=== PATIENT | male | born 1950 | race Caucasian/White ===

== ENCOUNTER → 2018-10-22 | Outpatient (CLI) | payer MEDICARE ==
--- NOTE | 2018-10-22 08:50 | US ---
EXAMINATION TYPE: US duplex aorta DATE OF EXAM: 10/22/2018 COMPARISON: NONE CLINICAL HISTORY: Z13.6 Encounter for screening for cardiovascular d; AAA screening, no HTN EXAM MEASUREMENTS: Abdominal Aorta: Proximal: 3.2cm Transverse by 2.7 cm AP Mid: 2.2cm Transverse by 1.9 cm AP Distal: 2.0cm Transverse by 1.9 cm AP Bifurcation: 1.3cm Right ALBERTINA Transverse by 1.2 cm AP; 1.3cm Left ALBERTINA Transverse by 1.3 cm AP Color flow patency noted distal aorta with PSV of 77.6cm/sec. Aorta wall size is abnormal in Transver se measure. Intimal segmental wall calcification is noted throughout. IMPRESSION: 1. No abdominal aortic aneurysm.
== END | disposition home or self-care (01) ==
LOC: RADUSWWP 07:51
PROVIDERS: ATTEND Family Medicine
DX: Z13.6 Encounter for screening for cardiovascular disorders (principal)
CPT/HCPCS: 93979

== ENCOUNTER → 2021-03-08 | Outpatient (CLI) | payer MEDICARE ==
--- NOTE | 2021-03-08 18:19 | ECHOF ---
Referral Reason:R06.02 SOB, R07.89 Chest Pain MEASUREMENTS -------- HEIGHT: 185.4 cm WEIGHT: 79.4 kg BP: 124/61 RVIDd: 3.3 cm (< 3.3) IVSd: 1.2 cm (0.6 - 1.1) LVIDd: 4.1 cm (3.9 - 5.3) LVPWd: 1.2 cm (0.6 - 1.1) IVSs: 1.9 cm LVIDs: 2.2 cm LVPWs: 1.4 cm LA Diam: 3.8 cm (2.7 - 3.8) LAESV Index (A-L): 22.31 ml/m Ao Diam: 4.0 cm (2.0 - 3.7) AV Cusp: 2.2 cm (1.5 - 2.6) MV EXCURSION: 15.119 mm (> 18.000) MV EF SLOPE: 17 mm/s (70 - 150) EPSS: 0.6 cm MV E Khai: 0.83 m/s MV DecT: 335 ms MV A Khai: 0.87 m/s MV E/A Ratio: 0.96 RAP: 5.00 mmHg RVSP: 21.00 mmHg FINDINGS -------- Sinus rhythm. This was a technically adequate study. The left ventricular size is normal. There is borderline concentric left ventricular hypertrophy. Overall left ventricular systolic function is normal with, an EF between 60 - 65 %. The right ventricle is mildly enlarged. Normal LA size by volume 22+/-6 ml/m2. The right atrium is normal in size. Interatrial and interventricular septum intact. The aortic valve is trileaflet and appears structurally normal. Trace to mild aortic regurgitation. The mitral valve leaflets are mildly thickened. Mild mitral annular calcification present. Mild tricuspid regurgitation present. Right ventricular systolic pressure is normal at < 35 mmHg. Trace/mild (physiologic) pulmonic regurgitation. The aortic root is dilated measuring 4.0cm. Normal inferior vena cava with normal inspiratory collapse consistent with estimated right atrial pre ssure of 5 mmHg. There is no pericardial effusion. CONCLUSIONS -------- 1. The left ventricular size is normal. 2. There is borderline concentric left ventricular hypertrophy. 3. Overall left ventricular systolic function is normal with, an EF between 60 - 65 %. 4. The right ventricle is mildly enlarged. 5. Normal LA size by volume 22+/-6 ml/m2. 6. The aortic valve is trileaflet and appears structurally normal. 7. Trace to mild aortic regurgitation. 8. The mitral valve leaflets are mildly thickened. 9. Mild mitral annular calcification present. 10. Mild tricuspid regurgitation present. 11. Trace/mild (physiologic) pulmonic regurgitation. 12. The aortic root is dilated measuring 4.0cm. 13. There is no pericardial effusion. BIOASSAYIST: Ellen Davis RDCS
== END | disposition home or self-care (01) ==
LOC: RADECHMAIN 12:11
PROVIDERS: ATTEND Family Medicine
DX: I08.1 Rheumatic disorders of both mitral and tricuspid valves (principal); I37.1 Nonrheumatic pulmonary valve insufficiency
CPT/HCPCS: 93306

== ENCOUNTER → 2021-03-29 | Outpatient (CLI) | payer BC, MEDICARE ==
[~2021-03-29] MED LIST: REGADENOSON 0.4 MG/5 ML SYRINGE IV PRN
--- NOTE | 2021-03-29 11:19 | EST ---
EXERCISE STRESS AGE: 70 SEX: Male HT: 73" WT: 175 pounds PROTOCOL: Lexiscan Cardiolite STAGE: DURATION OF EXERCISE: HEART RATE REST: 55 BLOOD PRESSURE REST: 120/70 MAXIMUM HEART RATE ACHIEVED: 80 MAXIMUM BLOOD PRESSURE: 126/70 85% MPHR: 129 100% MPHR: 152 METS: INDICATIONS: Chest pain. CLINICAL INFORMATION: Baseline rhythm is a sinus mechanism, rate of 55, normal axis and intervals. Normal electrocardiogram. Baseline blood pressure 120/70 mmHg. Patient received injection of Lexiscan. Electrocardiograph monitoring revealed no evidence of diagnostic ischemic ST deviation. Cardiolite was injected per protocol. CONCLUSION: 1. Nondiagnostic electrocardiograph stress testing. 2. Nuclear images will be reported separately. MMODL / IJN: [id number] /
--- NOTE | 2021-03-29 11:39 | NM ---
EXAMINATION TYPE: NM stress lexiscan cardiolite DATE OF EXAM: 03/29/2021 COMPARISON: NONE HISTORY: Chest pain TECHNIQUE: After the intravenous administration of 9.8 mCi Tc 99m Sestamibi - Cardiolite resting SPE CT images acquired 45 minutes post injection. The patient received 0.4mg Lexiscan, 25.0 mCi Tc 99m Sestamibi - Stress images obtained [address] injection FINDINGS: Review of stress and rest SPECT images demonstrates fixed defect involving the apex as well as a area of reversibility involving the apical inferior myocardium.. Gated analysis shows normal wall motion with an estimated left ventricular ejection fraction of 69 %. Report called to referring clinician 1 1:36 AM 03/29/2021. IMPRESSION: 1. Findings suspicious for stress-induced reversible ischemia involving the apical inferior myocardiu m. Correlate clinically. 2. Ejection fraction 69%.
== END | disposition home or self-care (01) ==
LOC: RADNMMAIN 08:20
PROVIDERS: ATTEND Family Medicine
DX: R07.9 Chest pain, unspecified (principal)
CPT/HCPCS: 93017; 78452; A9500; J2785

== ENCOUNTER → 2021-04-05 | Outpatient (CLI) | payer MEDICARE ==
[2021-04-05 16:06] LABS: HGB 9.2 gm/dL (13.0-17.5); MCH 39.1 pg (25.0-35.0); MCHC 31.6 g/dL (31.0-37.0); MCV 123.4 fL (80.0-100.0); Macrocytosis Marked; Mean Platelet Volume 8.4; Platelet Count 158 k/uL (150-450); RBC 2.35 m/uL (4.30-5.90); RDW 15.3 % (11.5-15.5); WBC 3.1 k/uL (3.8-10.6)
[2021-04-05 16:14] LABS: Potassium 4.6 mmol/L (3.5-5.1)
== END | disposition home or self-care (01) ==
LOC: LABPAT 15:28
PROVIDERS: ATTEND Internal Medicine Cardiovascular Disease
DX: Z01.812 Encounter for preprocedural laboratory examination (principal); R07.2 Precordial pain
CPT/HCPCS: 36415; 80051; 82565; 84520; 85027

== ENCOUNTER 2021-04-19 07:38 | Day surgery (SDC) | payer MEDICARE ==
[2021-04-16 13:01] VITALS: BMI 23.1
[~2021-04-19 07:38] MED LIST changes: +ALPRAZolam 0.25 MG TAB PO PRN; +ALPRAZolam 0.5 MG TAB PO PRN; +ASPIRIN 325 MG TAB PO STA; +ATORVASTATIN 80 MG TAB PO STA; +NITROGLYCERIN SL TABS 0.4 MG TAB SUBLINGUAL PRN; -REGADENOSON 0.4 MG/5 ML SYRINGE IV PRN; +SODIUM CHLORIDE 0.9% 1,000 ML in EMPTY BAG 1 BAG IV ONE
[2021-04-19] MEDS ORDERED: SODIUM CHLORIDE 0.9% 1,000 ML IV ONE (08:03)
[2021-04-19 08:22] VITALS: RESP 16; TEMP 97.7
[2021-04-19 08:35] LABS: Basophils % (A) 1 %; Eosinophils # (A) 0.2 k/uL (0-0.7); Eosinophils % (A) 5 %; HGB 9.5 gm/dL (13.0-17.5); Lymphocytes # (A) 1.8 k/uL (1.0-4.8); Lymphocytes % (A) 56 %; MCH 40.8 pg (25.0-35.0); MCHC 33.7 g/dL (31.0-37.0); MCV 120.9 fL (80.0-100.0); Macrocytosis Marked; Mean Platelet Volume 9.3; Monocytes # (A) 0.1 k/uL (0-1.0); Monocytes % (A) 4 %; Neutrophils # (A) 1.1 k/uL (1.3-7.7); Neutrophils % (A) 33 %; Platelet Count 141 k/uL (150-450); RBC 2.32 m/uL (4.30-5.90); RDW 14.5 % (11.5-15.5); WBC 3.2 k/uL (3.8-10.6)
[2021-04-19] MEDS ORDERED: LIDOCAINE 1% INJ 10MG/ML (20 ML MDV) ONE (09:10)
[2021-04-19] MEDS ORDERED: fentaNYL (PF) 50 MCG/ML 2 ML AMP ONE (09:29)
[2021-04-19] MEDS ORDERED: MIDAZOLAM 2 MG/2 ML VIAL IV ONE (09:32)
[2021-04-19] MEDS ORDERED: fentaNYL (PF) 50 MCG/ML 2 ML AMP IV ONE (09:32)
[2021-04-19] MEDS ORDERED: LIDOCAINE 1% INJ 10MG/ML (20 ML MDV) SQ ONE (09:36)
[2021-04-19] MEDS ORDERED: IOPAMIDOL-370 125ML BTL INJ ONE (09:46)
[2021-04-19] MEDS ORDERED: RX INFO: IV CONTRAST WAS GIVEN 1 EACH MISC MISCELLANE PRN (11:15)
[2021-04-19] MEDS ORDERED: SODIUM CHLORIDE 0.9% 1,000 ML IV SCH (11:15)
--- NOTE | 2021-04-19 11:54 | LTR ---
April 19, 2021 Re: Tyrone Jim Dear Nadege: I have performed cardiac catheterization on Tyrone Jim. A detailed catheterization note is enclosed for your records. In brief, cardiac catheterization shows normal coronary arteries and normal left ventricular end-diastolic pressures. Patient's symptoms are noncardiac in origin and stress test is a false positive stress test. His symptomatology could be related to the anemia and the patient will follow up with you for the same. Thank you for giving me the privilege to participate in the care of this pleasant gentleman. Sincerely yours, MD MACK Romo / ABDULAZIZ: [id number] /
--- NOTE | 2021-04-19 11:54 | CC ---
CARDIAC CATHETERIZATION REPORT INDICATION: Chest pain with abnormal stress test showing reversible perfusion defect involving the inferoapical wall. PROCEDURE NOTE: After obtaining informed consent, left heart catheterization and coronary angiogram were performed via the right femoral artery using standard Deb catheters. Patient tolerated the procedure well without any obvious immediate complications. A femoral angiogram was performed and Angio-Seal was deployed for hemostasis. Patient received moderate conscious sedation. Total sedation time was 12 minutes. FINDINGS: 1. HEMODYNAMICS: Left ventricular end-diastolic pressure is 12 mm. There is no significant gradient across the aortic valve. 2. LEFT VENTRICULOGRAM: Left ventriculogram is not performed. 3. ANGIOGRAPHIC DATA: Left Main Coronary Artery: Left main coronary artery is a normal-sized vessel and is free of stenosis. Divides into left anterior descending coronary artery and circumflex coronary artery. LAD and its branches, circumflex coronary artery and its branches are free of significant stenosis. Right coronary artery is a large dominant vessel and is free of significant disease. CONCLUSIONS: 1. Normal coronary arteries. 2. Normal left ventricular end-diastolic pressure. PLAN: I reviewed angiographic data with the patient and told him that his stress test is a false positive stress test that he should stop the aspirin and the Imdur that he is currently on. He is anemic and I encouraged him to follow up with his primary care physician and have further evaluation done for the same if it has not already been done. MMODL / IJN: [id number] /
[2021-04-19 14:33] VITALS: BP 116/59; PULSE 58
== END 2021-04-19 14:55 | disposition home or self-care (01) ==
LOC: CATHCVL 07:38
PROVIDERS: ATTEND Internal Medicine Cardiovascular Disease
DX: R07.2 Precordial pain (principal); R94.39 Abnormal result of other cardiovascular function study; D64.9 Anemia, unspecified; E78.2 Mixed hyperlipidemia; Z20.822 Contact with and (suspected) exposure to COVID-19; Z82.49 Family history of ischemic heart disease and other diseases of the circulatory system; F17.200 Nicotine dependence, unspecified, uncomplicated; Z79.82 Long term (current) use of aspirin; Z79.899 Other long term (current) drug therapy
CPT/HCPCS: 93458; 85025; 87635; C1769 ×2; C1760; C1894; J2250; J2001; J3010; Q9967

== ENCOUNTER → 2022-02-06 | Outpatient (CLI) | payer MEDICARE ==
--- NOTE | 2022-02-06 14:31 | XR ---
EXAMINATION TYPE: XR bone survey complete DATE OF EXAM: 02/06/2022 COMPARISON: None available HISTORY: History of bone marrow cancer CHEST: Single AP view of the chest and ribs. Grossly unremarkable lungs. No pleural effusion or pneum othorax. No cardiomegaly. Aortic atherosclerotic calcification. Unremarkable bony thoracic cage. Bony calvarium : 2 views of the bony calvarium demonstrate. Tiny lucencies are seen in the superior aspects of the parietal bones measuring up to 5 mm, nonspecific. Subtle underlying osseous lesions ca nnot be excluded. Unremarkable calvarial bones otherwise. Spine: Two views of the cervical, thoracic and lumbar spines are submitted. Degenerative changes of the lower cervical spine with C5-6 and C6-7 facet osteoarthropathy more on the left side. Dextroscoli osis of the midthoracic spine. Exaggerated dorsal kyphosis. Degenerative changes of the mid to lower thoracic spine and lumbar spine. Degenerative changes of the lower lumbar spine. No gross lytic or sc lerotic lesion identified in the spine. PELVIS: Single view of the pelvis. No gross lytic or sclerotic bone lesion. Mild degenerative changes of the hip joints. Bilateral pelvic phleboliths rather than urinary calculi. Arterial atheroscleroti c calcifications. HUMERAL BONES: Two views. No gross lytic or sclerotic bone lesions. FEMORAL BONES: 2 views. No gross lytic or sclerotic bone lesion. Arterial atherosclerotic calcificat ions. IMPRESSION: Subtle tiny lucencies at the superior aspects of the parietal bones, nonspecific. Subtle underlying lesions cannot be excluded. Otherwise no definite lytic or sclerotic bone lesion identifie d in the remainder of the visualized bones. Please note that tiny lytic lesion cannot be excluded by this skeletal survey. Whole-body CT is more sensitive for detection of such lesions. Incidental findings as described above.
== END | disposition home or self-care (01) ==
LOC: RADXRMAIN 09:16
PROVIDERS: ATTEND Internal Medicine Hematology & Oncology
DX: R93.7 Abnormal findings on diagnostic imaging of other parts of musculoskeletal system (principal); D64.9 Anemia, unspecified; E78.5 Hyperlipidemia, unspecified
CPT/HCPCS: 77075